=== PATIENT | female | born 1975 ===

== ENCOUNTER → 2024-11-04 | Day surgery (SDC) | payer OTHER ==
[~2024-11-04] MED LIST: COSENTYX125 MG/5 M INJ; ESTROVEN 155 M155 MG PO; HYOSCYAMINE SULFATE 0.5 MG/ML INJ ONE; LIDOCAINE HCL 2% LOCAL INJ 5 ML SDV VIAL INJ ONE; MAGNESIUM OXID400 MG PO; MELATONIN3 MG PO; MIDAZOLAM HCL 2 MG/2 ML VIAL ONE; MORINGA PO; NAD PO; PROPOFOL IV EMULSION 10 MG/ML 20 ML VIAL ONE; VIT E PO
[2024-11-04] MEDS: LACTATED RINGER'S 1,000 ML ONE (08:48)
[2024-11-04 10:51] VITALS: TEMP 97.4
[2024-11-04 11:20] VITALS: BP 109/69; PULSE 80; RESP 12; O2SAT 100
== END | disposition home or self-care (01) ==
LOC: OR 07:40
PROVIDERS: ATTEND Internal Medicine Gastroenterology
DX: K59.00 Constipation, unspecified (principal); D12.3 Benign neoplasm of transverse colon; K57.30 Diverticulosis of large intestine without perforation or abscess without bleeding; K64.8 Other hemorrhoids; L40.9 Psoriasis, unspecified; I10 Essential (primary) hypertension; E78.5 Hyperlipidemia, unspecified; R00.1 Bradycardia, unspecified; Z88.0 Allergy status to penicillin; Z01.810 Encounter for preprocedural cardiovascular examination; Z79.899 Other long term (current) drug therapy
CPT/HCPCS: 45385; 93005; J1980; J2003; J2250; J2704; J7121; 45378